=== PATIENT | female | born 1980 | race Caucasian/White ===

== ENCOUNTER 2016-09-05 07:02 | Day surgery (SDC) | payer OTHER ==
[~2016-09-05] VITALS: Ht 165.1 cm; Wt 64.9 kg
[2016-09-05 08:01] VITALS: BP 127/80
[2016-09-05 11:24] VITALS: BP 108/60
== END 2016-09-05 10:10 | disposition home or self-care (01) ==
LOC: GI 07:02 → OR 08:30 → GI 08:30
PROVIDERS: Internal Medicine Gastroenterology
PROC: 0DJD8ZZ Inspection of Lower Intestinal Tract, Via Natural or Artificial Opening Endoscopic (ICD-10-PCS; principal; 2016-09-05 08:00)
DX: R19.7 Diarrhea, unspecified (principal); R10.9 Unspecified abdominal pain
CPT/HCPCS: 45378; J1200; J1610; J2250; J2310; J3010; J3490